=== PATIENT | female | born 1950 | race Two or more races ===

== ENCOUNTER 2017-05-29 15:06 | Outpatient (RCR) ==
--- NOTE | 2017-06-03 10:28 | RS.OPPTEV2 ---
Date of Note: 05/29/17 Visit #: 1 Date of Evaluation: 05/29/17 Payer Source: MEDICARE Treatment Diagnosis: Left sided numbness, TIA, imbalance History of Condition/Mechanism of Injury:: Patient reports waking up with numbness in the left side of the face and body in December of 2016. States she has had many, many tests performed and they have not had anything show up to explain the numbness. Current Subjective/complaints:: Patient reports her main complaint is left sided numbness. States she is worried that she will have more symptoms and possibly a big stroke, so she basically does not leave the house. States she has not driven since the onset of her symptoms because she is afraid she will have a stroke. States the left LE at times feels swollen. Reports she has had a few falls. She has not been using an assistive device to walk. Reports no dizziness, other than slight dizziness when she first gets up in the mornings. Denies any problems with speech or swallowing. States she drops things from the left hand, which she feels is due to her lack of sensation. Medical History Medical History Comments:: CVA ? Surgical History: Cholecystectomy Smoking Status: Current every day smoker Diagnostic Testing/Imaging:: Multiple tests, including proximal cervical spinal cord found to be normal through MRI. Hx Home Medications: Gabapentin, other medications not given Patient's Goals: Her goal is to find out why she has left sided numbness and get it resolved. Pain Assessment - Pain Description Pain Location: Reports no specific area of pain. Functional Outcome Measure LE Functional Scale: 15 (80=81.25% impairment (self scored)) Tinetti: 26 (=7.2% impairment) - G Codes & Severity Modifier G Codes & Modifier: Mobility current, goal, D/C CI Source of G Code score: Patient scores herself very limited on the LE functional scale, (81.25% impairment) which does not match her presentation in the department. Upon presentation, I would place her at no more than 5-10% impairment based on her physical abilities in the department today. Tinetti Assessment of , indicates low fall risk. Observation - Observation Inspection: Patient presents to the department without an assistive device. Gait - Gait Pattern Gait Comments: Patient ambulates without an assistive device, independently. Demonstrates no loss of balance, exhibits symmetrical stride length, clears both feet consistently. Gait is steady when ambulating straight path or changing direction. 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 Patient demonstrates no loss of balance or difficulty with performing these tasks. General Range of Motion: Functional AROM throughout bilateral UE and LE's. Muscle Strength: 4+ to 5/5 muscle strength in bilateral UE and LE's. Sensation - Sensation Comments: Upon assessing sensation, patient states "I can feel it, but it feels different ". This is reported with sensation throughout the left UE and LE. Balance - Sitting Balance Static Sitting Balance: Normal Dynamic Sitting Balance: Normal - Standing Balance Static Standing Balance: Good Dynamic Standing Balance: Good Coordination - Tests Bilateral Finger to Nose: Normal/Intact Heel to Kennedy: Normal/Intact Toe Tapping: Normal/Intact Additional Comments: Additional Comments: Proprioception is intact throughout bilateral UE and LE's. Interventions - Exercise/Activities/Manual Therapy Exercises/Activities: No exercises given. Discussed safety awareness with all mobility. Manual Therapy: NA - Charges Total Direct Minutes: 55 mins Total Treatment Time: 55 mins Procedures billed for this date of service:: EVAL medium Assessment Assessment: Patient presents to therapy with a diagnosis of Transient cerebral ischemia, left sided numbness, imbalance. She reports a significant decrease in her activity level due to being afraid of the possibility of having more symptoms of a stroke. She scores herself significantly limited by our Functional Outcome measure of the LE Functional scale. Her presentation in the department does not match her score. She scores 26/28 on Tinetti assessment. A person is not considered to be at risk for falls unless they score 24 or below. Her only symptom appears to be her reports of numnbess. She does demonstrate proprioception to be intact. Unable to justify skilled Physical Therapy at this time due to not showing limitions to be addressed. Plan - Treatment to be Provided Procedures: Patient Education Modalities: No Modalities - Treatment Plan Frequency: one time (evaluation) Duration: One time treatment ORDER # VISITS AND/OR THROUGH DATE: 05/29/17
== END 2017-06-19 ==
PROVIDERS: ATTEND Clinical Nurse Specialist Adult Health
DX: G45.9 Transient cerebral ischemic attack, unspecified (principal); R20.0 Anesthesia of skin; R26.89 Other abnormalities of gait and mobility